=== PATIENT | female | born 1955 | race Caucasian/White ===

== ENCOUNTER → 2016-05-21 | Outpatient (CLI) | payer OTHER | LOC: CT 13:00 | DX: M54.2 Cervicalgia (principal); R51 Headache; R91.1 Solitary pulmonary nodule; M47.812 Spondylosis without myelopathy or radiculopathy, cervical region; M25.78 Osteophyte, vertebrae | CPT/HCPCS: 70450; 71250; 72141 ==

== ENCOUNTER → 2020-03-24 | Outpatient (CLI) | payer OTHER ==
[~2020-03-24] MED LIST: COLACE100 MG PO; ESBRIET267 MG PO; IMDUR ER TAB 3030 MG PO; K-DUR TAB 10 M10 MEQ PO; LASIX 40 MG TAB40 MG PO; LASIX20 MG PO; LOPRESSOR 25 MG25 MG PO; MICROZIDE12.5 MG PO; NORCO 5-325 TA1 EACH PO; SYMBICORT 160-1 INHA INH; VENTOLIN HFA 66.7 GM INH; ZOCOR20 MG PO
[2020-03-24 11:20] LABS: HEMOGLOBIN 13.2 gm/dl (12.3-15.3); RED BLOOD COUNT 4.44 M/UL (4.00-5.10)
== END ==
LOC: LAB 10:35
PROVIDERS: Internal Medicine Pulmonary Disease
DX: J84.112 Idiopathic pulmonary fibrosis (principal)
CPT/HCPCS: 36415; 80053; 80061; 84443; 85025

== ENCOUNTER → 2020-09-07 | Outpatient (CLI) | payer OTHER | LOC: CT 11:00 → KOH-I 14:00 | DX: Z72.0 Tobacco use (principal); R91.8 Other nonspecific abnormal finding of lung field | CPT/HCPCS: 71271 ==

== ENCOUNTER 2020-09-24 14:02 | Inpatient (IN) | payer OTHER ==
[~2020-09-24] VITALS: Ht 157.5 cm; Wt 78.0 kg
[~2020-09-24 14:02] MED LIST changes: -LASIX 40 MG TAB40 MG PO
[2020-09-24 14:52] LABS: HEMOGLOBIN 11.4 gm/dl (12.3-15.3); RED BLOOD COUNT 3.78 M/UL (4.00-5.10); WHITE BLOOD COUNT 16.6 K/UL (4.5-11.0)
[2020-09-24 15:28] LABS: BUN/CREATININE RATIO 13 (0-10)
[2020-09-25 04:18] LABS: RED BLOOD COUNT 3.71 M/UL (4.00-5.10)
[2020-09-25 04:47] LABS: BUN/CREATININE RATIO 15 (0-10)
[2020-09-25 15:30] LABS: BORDETELLA PARAPERTUSSIS Not Detected (Not Detectd); BORDETELLA PERTUSSIS Not Detected (Not Detectd); CHLAMYDIA PNEUMONIAE Not Detected (Not Detectd); CORONAVIRUS HKU1 Not Detected (Not Detectd); CORONAVIRUS NL63 Not Detected (Not Detectd); CORONAVIRUS OC43 Not Detected (Not Detectd); CORONOAVIRUS 229E Not Detected (Not Detectd); HUMAN METAPNEUMOVIRUS Not Detected (Not Detectd); HUMAN RHINOVIRUS/ENTEROVIRUS Not Detected (Not Detectd); INFLUENZA A Not Detected (Not Detectd); INFLUENZA B Not Detected (Not Detectd); MYCOPLASMA PNEUMONIAE Not Detected (Not Detectd); PARAINFLUENZA VIRUS 1 Not Detected (Not Detectd); PARAINFLUENZA VIRUS 2 Not Detected (Not Detectd); PARAINFLUENZA VIRUS 3 Not Detected (Not Detectd); PARAINFLUENZA VIRUS 4 Not Detected (Not Detectd); RESPIRATORY SYNCYTIAL VIRUS Not Detected (Not Detectd)
[2020-09-25] MEDS ORDERED: LASIX 40 MG TAB40 MG PO (15:37)
[2020-09-25 16:49] LABS: SARS-CoV-2 NOT DETECTED (Not Detectd)
[2020-09-26 05:02] LABS: HEMOGLOBIN 10.9 gm/dl (12.3-15.3); RED BLOOD COUNT 3.67 M/UL (4.00-5.10); WHITE BLOOD COUNT 21.5 K/UL (4.5-11.0)
[2020-09-26 05:27] LABS: BUN/CREATININE RATIO 23 (0-10)
[2020-09-27 06:13] LABS: HEMOGLOBIN 11.2 gm/dl (12.3-15.3); RED BLOOD COUNT 3.79 M/UL (4.00-5.10); WHITE BLOOD COUNT 17.4 K/UL (4.5-11.0)
[2020-09-28 05:17] LABS: HEMOGLOBIN 11.8 gm/dl (12.3-15.3); RED BLOOD COUNT 3.99 M/UL (4.00-5.10)
[2020-09-28 12:15] LABS: ORGANISM ID Not indicated. (.); SPECIMEN SOURCE Urine (.); STREPTOCOCCUS PNEUMONIAE AG Negative (Negative)
[2020-09-29 05:06] LABS: HEMOGLOBIN 12.2 gm/dl (12.3-15.3); RED BLOOD COUNT 4.13 M/UL (4.00-5.10)
[2020-10-01 05:57] LABS: BUN/CREATININE RATIO 38 (0-10)
[2020-10-02 05:40] LABS: HEMOGLOBIN 12.4 gm/dl (12.3-15.3); RED BLOOD COUNT 4.2 M/UL (4.00-5.10)
[2020-10-02 06:04] LABS: BUN/CREATININE RATIO 31 (0-10)
[2020-10-03 05:41] LABS: HEMOGLOBIN 11.8 gm/dl (12.3-15.3); RED BLOOD COUNT 4.12 M/UL (4.00-5.10); WHITE BLOOD COUNT 18.4 K/UL (4.5-11.0)
[2020-10-03 06:00] LABS: BUN/CREATININE RATIO 30 (0-10)
[2020-10-04 06:14] LABS: RED BLOOD COUNT 4.06 M/UL (4.00-5.10); WHITE BLOOD COUNT 19.6 K/UL (4.5-11.0)
[2020-10-04 06:31] LABS: BUN/CREATININE RATIO 32 (0-10)
[2020-10-05 05:30] LABS: HEMOGLOBIN 12.1 gm/dl (12.3-15.3); RED BLOOD COUNT 4.07 M/UL (4.00-5.10); WHITE BLOOD COUNT 23.9 K/UL (4.5-11.0)
[2020-10-05 05:50] LABS: BUN/CREATININE RATIO 34 (0-10)
[2020-10-06 10:03] LABS: HEMOGLOBIN 12.5 gm/dl (12.3-15.3); RED BLOOD COUNT 4.2 M/UL (4.00-5.10); WHITE BLOOD COUNT 27.4 K/UL (4.5-11.0)
[2020-10-06 10:17] LABS: BUN/CREATININE RATIO 33 (0-10)
[2020-10-07 05:09] LABS: HEMOGLOBIN 12.2 gm/dl (12.3-15.3); RED BLOOD COUNT 4.11 M/UL (4.00-5.10); WHITE BLOOD COUNT 22.8 K/UL (4.5-11.0)
[2020-10-07 05:35] LABS: BUN/CREATININE RATIO 27 (0-10)
[2020-10-08 05:11] LABS: HEMOGLOBIN 12.2 gm/dl (12.3-15.3); RED BLOOD COUNT 4.11 M/UL (4.00-5.10); WHITE BLOOD COUNT 21.3 K/UL (4.5-11.0)
[2020-10-09 09:00] LABS: HEMOGLOBIN 12.1 gm/dl (12.3-15.3); RED BLOOD COUNT 4.05 M/UL (4.00-5.10); WHITE BLOOD COUNT 24.8 K/UL (4.5-11.0)
[2020-10-09 09:18] LABS: BUN/CREATININE RATIO 32 (0-10)
[2020-10-09 19:52] LABS: BODY FLUID SOURCE BRONCH LEFT LUNG
[2020-10-09 19:55] LABS: RBC (MANUAL) 286; WBC (MANUAL) 493
[2020-10-10 05:33] LABS: BUN/CREATININE RATIO 21 (0-10)
[2020-10-10 08:39] LABS: WHITE BLOOD COUNT 24.4 K/UL (4.5-11.0)
[2020-10-10 08:46] LABS: HEMOGLOBIN 10.1 gm/dl (12.3-15.3); RED BLOOD COUNT 3.41 M/UL (4.00-5.10)
[2020-10-10 09:01] LABS: BUN/CREATININE RATIO 24 (0-10)
[2020-10-11 05:43] LABS: BUN/CREATININE RATIO 30 (0-10)
[2020-10-11 10:00] LABS: BUN/CREATININE RATIO 30 (0-10)
[2020-10-12 05:48] LABS: BUN/CREATININE RATIO 38 (0-10)
[2020-10-13 05:36] LABS: HEMOGLOBIN 10.3 gm/dl (12.3-15.3); RED BLOOD COUNT 3.44 M/UL (4.00-5.10); WHITE BLOOD COUNT 22.5 K/UL (4.5-11.0)
[2020-10-13 05:57] LABS: BUN/CREATININE RATIO 48 (0-10)
[2020-10-14 05:33] LABS: HEMOGLOBIN 10.8 gm/dl (12.3-15.3); RED BLOOD COUNT 3.67 M/UL (4.00-5.10); WHITE BLOOD COUNT 22.5 K/UL (4.5-11.0)
[2020-10-14 06:03] LABS: BUN/CREATININE RATIO 52 (0-10)
[2020-10-15 06:03] LABS: HEMOGLOBIN 10.6 gm/dl (12.3-15.3); RED BLOOD COUNT 3.75 M/UL (4.00-5.10); WHITE BLOOD COUNT 20.2 K/UL (4.5-11.0)
[2020-10-15 06:14] LABS: BUN/CREATININE RATIO 39 (0-10)
[2020-10-16 06:00] LABS: HEMOGLOBIN 10.3 gm/dl (12.3-15.3); RED BLOOD COUNT 3.56 M/UL (4.00-5.10); WHITE BLOOD COUNT 19.1 K/UL (4.5-11.0)
[2020-10-16 06:20] LABS: BUN/CREATININE RATIO 39 (0-10)
[2020-10-17 05:35] LABS: HEMOGLOBIN 9.3 gm/dl (12.3-15.3); RED BLOOD COUNT 3.2 M/UL (4.00-5.10); WHITE BLOOD COUNT 21.6 K/UL (4.5-11.0)
[2020-10-17 05:44] LABS: BUN/CREATININE RATIO 38 (0-10)
[2020-10-18 05:43] LABS: HEMOGLOBIN 10.4 gm/dl (12.3-15.3); RED BLOOD COUNT 3.52 M/UL (4.00-5.10); WHITE BLOOD COUNT 17.3 K/UL (4.5-11.0)
[2020-10-18 05:45] LABS: BUN/CREATININE RATIO 37 (0-10)
[2020-10-19 04:43] LABS: HEMOGLOBIN 9.9 gm/dl (12.3-15.3); RED BLOOD COUNT 3.53 M/UL (4.00-5.10); WHITE BLOOD COUNT 15.2 K/UL (4.5-11.0)
[2020-10-19 05:04] LABS: BUN/CREATININE RATIO 56 (0-10)
[2020-10-20 04:36] LABS: HEMOGLOBIN 9.9 gm/dl (12.3-15.3); RED BLOOD COUNT 3.35 M/UL (4.00-5.10); WHITE BLOOD COUNT 13.7 K/UL (4.5-11.0)
[2020-10-20 05:00] LABS: BUN/CREATININE RATIO 44 (0-10)
[2020-10-21 05:00] LABS: HEMOGLOBIN 9.1 gm/dl (12.3-15.3); RED BLOOD COUNT 3.03 M/UL (4.00-5.10); WHITE BLOOD COUNT 15.1 K/UL (4.5-11.0)
[2020-10-21 05:35] LABS: BUN/CREATININE RATIO 44 (0-10); GAMMA GLUTAMYL TRANSPEPTIDASE 53 U/L (7-64)
[2020-10-21 10:14] LABS: HEMOGLOBIN 8.9 gm/dl (12.3-15.3); WHITE BLOOD COUNT 15.6 K/UL (4.5-11.0)
[2020-10-21 10:32] LABS: BUN/CREATININE RATIO 36 (0-10)
--- NOTE | 2020-10-21 18:28 | NUR ---
OR STAFF BROUGHT PT BACK TO ROOM, POST MORTEM CARE ALREADY COMPLETED. REMOVED CENTRAL LINE, ALL OTHER LINES ALREADY REMOVED BY OR STAFF. [facility] CONTACTED, ON THEIR WAY.
== END 2020-10-21 16:06 | disposition expired | DRG 870 ==
LOC: ER1 14:02 → CCU 16:12 → CDU 16:12 → PROG CARE 20:36 → CCU 09-26 12:30
PROVIDERS: Family Medicine; Internal Medicine; Internal Medicine Pulmonary Disease; ADMIT Internal Medicine
PROC: 5A0955A Assistance with Respiratory Ventilation, Greater than 96 Consecutive Hours, High Flow/Velocity Cannula (ICD-10-PCS; 2020-09-24)
PROC: B24BZZZ Ultrasonography of Heart with Aorta (ICD-10-PCS; 2020-09-25)
PROC: 5A1955Z Respiratory Ventilation, Greater than 96 Consecutive Hours (ICD-10-PCS; 2020-10-09)
PROC: 3E033XZ Introduction of Vasopressor into Peripheral Vein, Percutaneous Approach (ICD-10-PCS; 2020-10-09)
PROC: B24BZZZ Ultrasonography of Heart with Aorta (ICD-10-PCS; 2020-10-09)
PROC: 02HV33Z Insertion of Infusion Device into Superior Vena Cava, Percutaneous Approach (ICD-10-PCS; 2020-10-09)
PROC: B548ZZA Ultrasonography of Superior Vena Cava, Guidance (ICD-10-PCS; 2020-10-09)
PROC: 0B9J8ZX Drainage of Left Lower Lung Lobe, Via Natural or Artificial Opening Endoscopic, Diagnostic (ICD-10-PCS; 2020-10-09)
PROC: 0BCB8ZZ Extirpation of Matter from Left Lower Lobe Bronchus, Via Natural or Artificial Opening Endoscopic (ICD-10-PCS; 2020-10-09)
PROC: 0BH18EZ Insertion of Endotracheal Airway into Trachea, Via Natural or Artificial Opening Endoscopic (ICD-10-PCS; principal; 2020-10-09 16:30)
DX: A41.9 Sepsis, unspecified organism (principal); R65.21 Severe sepsis with septic shock; E43 Unspecified severe protein-calorie malnutrition; I50.33 Acute on chronic diastolic (congestive) heart failure; J15.9 Unspecified bacterial pneumonia; J80 Acute respiratory distress syndrome; J98.11 Atelectasis; T17.890A Other foreign object in other parts of respiratory tract causing asphyxiation, initial encounter; I46.9 Cardiac arrest, cause unspecified; Z20.822 Contact with and (suspected) exposure to COVID-19; Z66 Do not resuscitate; J43.9 Emphysema, unspecified; J84.10 Pulmonary fibrosis, unspecified; E87.6 Hypokalemia; I08.1 Rheumatic disorders of both mitral and tricuspid valves; I44.7 Left bundle-branch block, unspecified; R45.1 Restlessness and agitation; I11.0 Hypertensive heart disease with heart failure; R91.1 Solitary pulmonary nodule; I27.20 Pulmonary hypertension, unspecified; K59.00 Constipation, unspecified; D64.9 Anemia, unspecified; Z88.1 Allergy status to other antibiotic agents; Z88.8 Allergy status to other drugs, medicaments and biological substances; Z88.2 Allergy status to sulfonamides; Z90.49 Acquired absence of other specified parts of digestive tract; Z82.49 Family history of ischemic heart disease and other diseases of the circulatory system; Z87.891 Personal history of nicotine dependence; Z68.29 Body mass index [BMI] 29.0-29.9, adult; I25.2 Old myocardial infarction
CPT/HCPCS: ECHO; 0240U; 31500; 36415; 36600; 71045; 71260; 80048; 80053; 80202; 81001; 82150; 82248; 82330; 82550; 82553; 82728; 82803; 82962; 82977; 83036; 83605; 83615; 83690; 83735; 83874; 83880; 83930; 84100; 84484; 85025; 85027; 85379; 85384; 85610; 85652; 85730; 86140; 86141; 86738; 87040; 87070; 87081; 87205; 87206; 87278; 87633; 87899; 89051; 93005; 93306; 93308; 94002; 94003; 94640; 94660; 94664; 94760; 94762; 96374; 99285; C1751; C9113; J0171; J0330; J0692; J1120; J1205; J1644; J1650; J1940; J2060; J2185; J2270; J2370; J2543; J2704; J2920; J2930; J3370; J3475; J7030; J7040; J7050; J7070; Q9967; U0002